=== PATIENT | female | born 1940 | race Caucasian/White ===

== ENCOUNTER 2019-10-18 13:50 | Outpatient (CLI) | payer MEDICARE, MEDICAID, SELFPAY | END 2019-10-18 13:51 | disposition home or self-care (01) | LOC: LAB 10-18 17:15 | PROVIDERS: Family Provider Family Medicine; PCP Family Medicine; Visit Provider Physician Assistant | DX: N39.0 Urinary tract infection, site not specified (principal) | CPT/HCPCS: 81003; 87086 ==

== ENCOUNTER 2019-10-27 11:00 | Inpatient (IN) | payer MEDICARE, OTHER, MEDICAID, SELFPAY ==
[2019-10-27] VITALS (12 sets, daily range): BP systolic 105–176; BP diastolic 67–94; PULSE 82–103; RESP 16–29; TEMP 36.8–37.4; O2SAT 91–96; BMI 28.1
--- NOTE | 2019-10-27 11:10 | ED_ITS ---
Entered by Carla Velázquez, acting as scribe for HPI - SOB/Dyspnea General: Chief Complaint: Shortness of Breath/Dyspnea Stated Complaint: SOB; HEADACHE Time Seen by Provider: 10/27/19 11:08 Source: patient Mode of arrival: EMS Limitations: no limitations History of Present Illness: HPI Narrative: 78 yo Female presents to ED from [facility] with complaint of shortness of breath. Pt states that she has been running a fever and throwing up. Pt states that she has only taken one pain pill today and she threw up the rest of her pills. Pt states that she normally wears oxygen at home. Pt states that she is on up to 3 liters at the halfway. Pt denies shortness of breath and states that she is here because of her fever and vomiting. Pt states she hasn't been around many sick people. Pt states that she has chronic back and shoulder pain. MD elicited complaint: shortness of breath Pertinent past history: COPD, congestive heart failure and pneumonia Known history of: COPD, congestive heart failure and recurrent pneumonia Associated symptoms: Reports cough, fever(s), nausea and vomiting Related Data: Home oxygen amount: 3 liters Review of Systems General: Reports: 10 or more systems reviewed and unremarkable except in HPI and below Const: Reports: fever Resp: Reports: productive cough (wet cough); Denies: shortness of breath GI: Reports: nausea and vomiting; Denies: diarrhea Musc: Reports: back pain (chronic) PFSH ED PFSH: Statuses (acute, chronic, etc) shown below reflect problem list status as previously entered and may not be historically accurate Medical History (Updated 10/27/19 @ 15:00 by Liam Barry MD, [facility] [place]) CHF (congestive heart failure) (Acute) Chronic back pain (Acute) COPD (chronic obstructive pulmonary disease) (Acute) GERD (gastroesophageal reflux disease) (Acute) Hepatitis (Acute) HTN (hypertension) (Acute) Lung disease (Acute) Osteoporosis (Acute) Pneumonia (Acute) Urinary tract infection, site not specified (Acute) Valvular heart disease (Acute) Surgical History (Updated 10/27/19 @ 11:32 by Carla Velázquez) History of back surgery (Acute) History of hip surgery (Acute) History of knee surgery (Acute) S/P cataract extraction (Acute) S/P tonsillectomy (Acute) Family History (Updated 10/25/19 @ 17:02 by Laura Graf RN) Family/Other Lung disease Cancer Hyperlipidemia Hypertension Social History (Updated 10/25/19 @ 17:03 by Laura Graf RN) Smoking and tobacco status: former smoker Alcohol intake: never Marital status: Current occupational status: retired Physical Exam Const: COMMON NORMALS: no apparent distress, average body habitus, oriented x3, no limitations, healthy appearing, alert and well nourished HENMT: COMMON NORMALS: normocephalic, head/scalp atraumatic, hearing grossly normal bilaterally, external ears normal, EAC's normal, TM's normal bilaterally, external nose normal, nasal mucous membranes and turbinates normal, moist oral mucous membranes, oropharynx normal, dentition normal and gingiva normal HEAD & SCALP: normocephalic and atraumatic NOSE: external nose normal and nasal mucous membranes and turbinates normal EXTERNAL EAR: Yes external ears normal EXTERNAL AUDITORY CANAL: EAC's normal TYMPANIC MEMBRANE: TM's normal bilaterally Eye: COMMON NORMALS: PERRL, EOMs intact bilaterally, conjunctivae normal, no scleral icterus, no papilledema, normal visual brewer by confrontation and fundi normal bilaterally CONJUNCTIVA: Yes conjunctivae normal PUPIL: Yes PERRL DIRECT OPHTHALMOSCOPY: Yes no papilledema and Yes fundi normal bilaterally Neck/C-Spine: COMMON NORMALS: full ROM, supple, no meningeal signs, no JVD and no carotid bruits Chest: COMMONS NORMALS: inspection of chest normal and palpation of chest normal Resp: COMMON NORMALS: normal respiratory effort, no retractions, no use of accessory muscles, clear to auscultation bilaterally and percussion normal AUSCULTATION: clear to auscultation bilaterally PERCUSSION: percussion normal Cardio: COMMON NORMALS: no JVD, regular rate, regular rhythm, S1 normal heart sound, S2 normal heart sound, no gallops, no clicks, no murmurs, no rub and peripheral pulses 2+ throughout RATE: regular rate RHYTHM: regular rhythm HEART SOUNDS: S1 normal and S2 normal PERIPHERAL PULSES: pulses 2+ throu ghout GI: COMMON NORMALS: normal to inspection, nondistended, normoactive bowel sounds, soft to palpation, non-tender, no hepatosplenomegaly, no masses and no bruits PALPATION: Yes soft and Yes no hepatosplenomegaly : COMMON NORMALS: Yes no CVA tenderness BLADDER/KIDNEY EXAM: Yes no CVA tenderness Back/Pelvis: COMMON NORMALS: no CVA tenderness Extremity: COMMON NORMALS: normal to inspection, full ROM, normal capillary refill, no joint enlargement, no clubbing, cyanosis or edema, no calf tenderness and no pedal edema Neuro: COMMON NORMALS: oriented x3 SENSORIUM/ORIENTATION: Yes alert MENINGEAL SIGNS: Yes no meningeal signs Skin: COMMON NORMALS: no rashes or lesions noted, no wounds, skin turgor normal, no jaundice, no petechiae and no mottling GENERAL SKIN EXAM: no rashes or lesions noted and turgor normal Course Vital Signs: Vital signs: Vital Signs Temperature 98.5 F 10/27/19 11:10 Pulse Rate 93 10/27/19 12:58 Respiratory Rate 22 H 10/27/19 12:58 Blood Pressure 105/82 10/27/19 13:44 Pulse Oximetry 93 10/27/19 13:44 MDM - SOB/Dyspnea MDM Narrative: Medical decision making narrative: 78-year-old halfway resident who presents to the emergency department with hypoxia, shortness of breath. Evaluation in the emergency department showed significantly elevated white cell count as well as atelectasis in the right base which I am concerned is a developing pneumonia. Because of all of the above I am going to manage has a case of pneumonia and she will be admitted to the hospital for inpatient antibiotics intravenously. The patient reluctantly agreed to this plan and all her questions were answered. Differential Diagnosis: Shortness of Breath Differential Diagnosis: Likely acute exacerbation of chronic obstructive airways disease, congestive heart failure and community acquired pneumonia Medical Records: Attestation: I reviewed the patient's medical records. Lab Data: Attestation: I reviewed the patient's lab results. Labs: Lab Results 10/27/19 10/27/19 10/27/19 Range/Units 10:54 10:54 10:54 WBC 25.2 H (4.0-10.0) 10^3/ uL RBC 4.98 (4.1-5.3) 10^6/u L Hgb 14.5 (11.5-15.3) g/dL Hct 45.2 (37.0-47.0) % MCV 90.8 (81-99) fL MCH 29.1 (28.0-34.0) pg MCHC 32.1 (30.0-36.0) g/dL RDW 14.0 (12.1-15.1) % Plt Count 406 H (130-400) 10^3/c mm MPV 8.4 (7.4-10.4) fL Neut % (Auto) 78.2 % Lymph % (Auto) 13.9 % [place] % (Auto) 6.3 % Eos % (Auto) 0.4 % Baso % (Auto) 0.4 % Neut # (Auto) 19.8 H (1.8-7.7) 10^3/u L Lymph # (Auto) 3.5 (0.8-4.8) 10^3/u L [place] # (Auto) 1.6 H (0.2-0.9) 10^3/u L Eos # (Auto) 0.1 (0.0-0.8) 10^3/u L Baso # (Auto) 0.1 (0.0-0.1) 10^3/u L Nucleated RBC % (a uto) 0 % Nucleated RBCs # 0.0 /100WBC Sodium 147 H (136-145) mmol/L Potassium 3.9 (3.5-5.1) mmol/L Chloride 102 (98-107) mmol/L Carbon Dioxide 26 (22-29) mmol/L Anion Gap 22.9 H (5-19) BUN 15 (8-23) mg/dL Creatinine 0.8 (0.5-0.9) mg/dL Glucose 174 H (74-106) mg/dL Lactic Acid (0.5-2.2) mmol/L Calcium 10.0 (8.8-10.2) mg/Dl Total Bilirubin 0.3 (0.15-1.2) mg/dL AST 14 (0-32) U/L ALT 9 (0-33) U/L Alkaline Phosphata se 100 (35-105) IU/L Troponin T Baselin e 30 H (0-10) ng/mL Troponin T 120 Min [place] (0-10) ng/mL Delta Troponin T (0-10) ABS# NT-Pro-B Natriuret Pep 524 H (0-450) pg/mL Total Protein 7.8 (6.6-8.7) g/dL Albumin 4.1 (3.5-5.2) g/dL Globulin 3.7 (1.3-4.6) g/dL Lipase 23 (13-60) U/L Urine Color (Yellow) Urine Appearance (CLEAR) Urine pH (5-7) Ur Specific Gravit y (1.005-1.030) Urine Protein (Negative) Urine Glucose (UA) (Normal) Urine Ketones (Negative) Urine Occult Blood (Negative) Urine Nitrate (Negative) Urine Bilirubin (NEGATIVE) Urine Urobilinogen (Negative) mg/dL Ur Leukocyte Lottie ase (Negative) Influenza Type A A g (Negative) POC Influenza B Ag (Negative) 10/27/19 10/27/19 10/27/19 Range/Units 11:28 11:32 12:10 WBC (4.0-10.0) 10^3/ uL RBC (4.1-5.3) 10^6/u L Hgb (11.5-15.3) g/dL Hct (37.0-47.0) % MCV (81-99) fL MCH (28.0-34.0) pg MCHC (30.0-36.0) g/dL RDW (12.1-15.1) % Plt Count (130-400) 10^3/c mm MPV (7.4-10.4) fL Neut % (Auto) % Lymph % (Auto) % [place] % (Auto) % Eos % (Auto) % Baso % (Auto) % Neut # (Auto) (1.8-7.7) 10^3/u L Lymph # (Auto) (0.8-4.8) 10^3/u L [place] # (Auto) (0.2-0.9) 10^3/u L Eos # (Auto) (0.0-0.8) 10^3/u L Baso # (Auto) (0.0-0.1) 10^3/u L Nucleated RBC % (a uto) % Nucleated RBCs # /100WBC Sodium (136-145) mmol/L Potassium (3.5-5.1) mmol/L Chloride (98-107) mmol/L Carbon Dioxide (22-29) mmol/L Anion Gap (5-19) BUN (8-23) mg/dL Creatinine (0.5-0.9) mg/dL Glucose (74-106) mg/dL Lactic Acid 1.3 (0.5-2.2) mmol/L Calcium (8.8-10.2) mg/Dl Total Bilirubin (0.15-1.2) mg/dL AST (0-32) U/L ALT (0-33) U/L Alkaline Phosphata se (35-105) IU/L Troponin T Baselin e (0-10) ng/mL Troponin T 120 Min [place] (0-10) ng/mL Delta Troponin T (0-10) ABS# NT-Pro-B Natriuret Pep (0-450) pg/mL Total Protein (6.6-8.7) g/dL Albumin (3.5-5.2) g/dL Globulin (1.3-4.6) g/dL Lipase (13-60) U/L Urine Color Dark yellow (Yellow) Urine Appearance Clear (CLEAR) Urine pH 7 (5-7) Ur Specific Gravit y 1.010 (1.005-1.030) Urine Protein Neg (Negative) Urine Glucose (UA) Norm (Normal) Urine Ketones 1+ H (Negative) Urine Occult Blood Neg (Negative) Urine Nitrate Negative (Negative) Urine Bilirubin Neg (NEGATIVE) Urine Urobilinogen Norm (Negative) mg/dL Ur Leukocyte Lottie ase Negative (Negative) Influenza Type A A g Negative (Negative) POC Influenza B Ag Negative (Negative) 10/27/19 Range/Units 12:55 WBC (4.0-10.0) 10^3/ uL RBC (4.1-5.3) 10^6/u L Hgb (11.5-15.3) g/dL Hct (37.0-47.0) % MCV (81-99) fL MCH (28.0-34.0) pg MCHC (30.0-36.0) g/dL RDW (12.1-15.1) % Plt Count (130-400) 10^3/c mm MPV (7.4-10.4) fL Neut % (Auto) % Lymph % (Auto) % [place] % (Auto) % Eos % (Auto) % Baso % (Auto) % Neut # (Auto) (1.8-7.7) 10^3/u L Lymph # (Auto) (0.8-4.8) 10^3/u L [place] # (Auto) (0.2-0.9) 10^3/u L Eos # (Auto) (0.0-0.8) 10^3/u L Baso # (Auto) (0.0-0.1) 10^3/u L Nucleated RBC % (a uto) % Nucleated RBCs # /100WBC Sodium (136-145) mmol/L Potassium (3.5-5.1) mmol/L Chloride (98-107) mmol/L Carbon Dioxide (22-29) mmol/L Anion Gap (5-19) BUN (8-23) mg/dL Creatinine (0.5-0.9) mg/dL Glucose (74-106) mg/dL Lactic Acid (0.5-2.2) mmol/L Calcium (8.8-10.2) mg/Dl Total Bilirubin (0.15-1.2) mg/dL AST (0-32) U/L ALT (0-33) U/L Alkaline Phosphata se (35-105) IU/L Troponin T Baselin e (0-10) ng/mL Troponin T 120 Min [place] 29.11 H (0-10) ng/mL Delta Troponin T -0.89 L (0-10) ABS# NT-Pro-B Natriuret Pep (0-450) pg/mL Total Protein (6.6-8.7) g/dL Albumin (3.5-5.2) g/dL Globulin (1.3-4.6) g/dL Lipase (13-60) U/L Urine Color (Yellow) Urine Appearance (CLEAR) Urine pH (5-7) Ur Specific Gravit y (1.005-1.030) Urine Protein (Negative) Urine Glucose (UA) (Normal) Urine Ketones (Negative) Urine Occult Blood (Negative) Urine Nitrate (Negative) Urine Bilirubin (NEGATIVE) Urine Urobilinogen (Negative) mg/dL Ur Leukocyte Lottie ase (Negative) Influenza Type A A g (Negative) POC Influenza B Ag (Negative) Imaging Data^: CXR: Radiologist's impression: [place] [id number] XRay Report Signed Patient: Bashir Nino #: [id number] : 9Acct#:[id number] Age/Sex: 78 / FADM Date: 10/27/19 Loc: ERRoom/Bed: Attending Dr: Ordering Provider/Ordering MD: Liam Barry MD, [facility] [place] Date of Service: 10/27/19 Procedure(s): XR chest 1V portable [id number] Accession Number(s): [id number] Report Number: [id number] PROCEDURE INFORMATION: Exam: XR Chest, 1 View Exam date and time: 10/27/2019 12:06 PM Age: 78 years old Clinical indication: Shortness of breath; Additional info: SOB TECHNIQUE: Imaging protocol: XR of the chest Views: Frontal portable upright view of the chest. COMPARISON: CR Chest 1 [place] [id number] 04/25/2019 10:02 PM FINDINGS: Lungs: Stable LEFT basilar pulmonary subsegmental atelectasis. The pulmonary vasculature is normal. Increased RIGHT basilar pulmonary subsegmental atelectasis. Pleural space: No pleural effusion. No pneumothorax. Heart/Mediastinum: Stable borderline cardiomegaly. Mediastinum: Stable. Vasculature: Moderate aortic arch atherosclerotic calcification without ectasia. Bones/joints: Large inferior articular marginal osteophyte of the LEFT humeral head. XR/XR chest 1V portable [id number] IMPRESSION: 1. Stable LEFT basilar pulmonary subsegmental atelectasis. 2. Increased RIGHT basilar pulmonary subsegmental atelectasis. Dictated By:Julien Rueda MD Signed By:Julien Ruedaigned Date/Time:10/27/19 1331 DD/ 1329 CT Chest: Radiologist's impression: [address] [place] [address] CT Scan Report Signed Patient: Bashir Nino #: [id number] : 9Acct#:[id number] Age/Sex: 78 / FADM Date: 10/27/19 Loc: ERRoom/Bed: Attending Dr: Ordering Provider/Ordering MD: Liam Barry MD, [facility] [place] Date of Service: 10/27/19 Procedure(s): CT chest w con* [id number] Accession Number(s): [id number] Report Number: [id number] PROCEDURE INFORMATION: Exam: CT Chest With Contrast Exam date and time: 10/27/2019 1:48 PM Age: 78 years old Clinical indication: Shortness of breath; Additional info: SOB, hypoxia TECHNIQUE: Imaging protocol: Computed tomography of the chest with intravenous contrast. Total DLP: 606.47 mGy-cm Radiation optimization: All CT scans at this facility use at least one of these dose optimization techniques: automated exposure control; mA and/or kV adjustment per patient size (includes targeted exams where dose is matched to clinical indication); or iterative reconstruction. Contrast material: Omnipaque 300; Contrast volume: 95 ml; Contrast route: IV; COMPARISON: CTA Chest-Pulmonary Emb [id number] 04/25/2019 11:50 PM FINDINGS: Thyroid: Inferior LEFT thyroid hypodensity measuring 14 mm. Lungs: Posterior RIGHT lower lobe pulmonary partial atelectasis. Bibasilar mild pulmonary subsegmental atelectasis is present. Pleural space: Unremarkable. No pneumothorax. No pleural effusion. Heart: LAD and RCA calcified coronary atherosclerosis. Mediastinum: Subcarinal granulomatous morris calcifications are present. Aorta: Moderate aortic arch, branch, and descending thoracic aortic atherosclerotic calcification without ectasia. Lymph nodes: RIGHT pulmonary hilar lymph node measuring 8.3 mm short axis. Kidneys and ureters: Bilateral renal cysts, largest on the LEFT measuring 14 mm. Bones/joints: Diffuse osteopenia. Degenerative disk disease is present at mid-thoracic spine disk levels. Chronic healed posterolateral LEFT fourth, fifth, eighth and ninth, and 10th, posterior 10th and 11th rib fractures. 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 L1-2 degenerative disc disease with moderate spondylosis. Soft tissues: Unremarkable. Other findings: Vasculature: Azygous arch valvular calcifications, normal variant. CT/CT chest w con* [id number] IMPRESSION: 1. No pulmonary embolism identified. 2. Bilateral renal cysts. 3. Posterior RIGHT lower lobe pulmonary partial atelectasis, increased. 4. Coronary atherosclerosis. 5. Recommend nonemergent thyroid sonography for further evaluation of a possible LEFT thyroid nodule. COMMENT: In patients aged 35 years and older with an incidental thyroid nodule equal to or greater than 1.[address], MRI or extrathyroidal US, further evaluation with dedicated thyroid US is recommended for patients with normal life expectancy and without comorbidities. For smaller nodules without suspicious features, no further evaluation or follow up is recommended. Radiation Dose CTDIVOL = (mGy): DLP = 606.47 (mGy-cm) Dictated By:Julien Rueda MD Signed By:Julien Ruedaigned Date/Time:10/27/191434 DD/ 32 EKG Data^: EKG 1: Attestation: I personally reviewed and interpreted this EKG as follows: EKG Interpretation Date: 10/27/19 EKG interpretation time: 11:45 Prior EKG tracings: not available for review Interpretation: Heart rate is 100.Sinus tachycardia. LAE. No ST changes Discharge Plan Discharge Patient Disposition: Admitted As Inpatient Clinical Impression: HCAP (healthcare-associated pneumonia), Hypoxia Condition: Stable Prescriptions: No Action Advair Diskus 250-50 mcg/dose Blister With Device 1 inh INHALATION BID RF: 0 acetaminophen 325 mg Tablet 650 mg PO BID RF: 0 acetaminophen 325 mg Tablet 650 mg PO Q4H PRN (Reason: Pain) RF: 0 tizanidine 2 mg Tablet 2 mg PO BID RF: 0 tizanidine 2 mg Tablet 2 mg PO DAILY PRN (Reason: Spasms) RF: 0 albuterol sulfate 2.5 mg /3 mL (0.083 %) Solution For Nebulization 2.5 mg INHALATION QID PRN (Reason: Shortness Of Breath) RF: 0 Miralax 17 gram Powder In Packet 17 g PO DAILY RF: 0 cetirizine 10 mg Tablet 10 mg PO DAILY RF: 0 Senna-S 8.6-50 mg Tablet 1 tab PO BID PRN (Reason: Constipation) RF: 0 potassium chloride 10 mEq Tablet Extended Release 10 meq PO DAILY RF: 0 lorazepam 0.5 mg Tablet 0.25 mg PO BID PRN (Reason: Anxiety) RF: 0 Milk of Magnesia 400 mg/5 mL Suspension 30 ml PO DAILY PRN (Reason: Constipation) RF: 0 simvastatin 20 mg Tablet 20 mg PO BEDTIME RF: 0 buspirone 30 mg Tablet 30 mg PO BID RF: 0 ferrous sulfate 325 mg (65 mg iron) Tablet 325 mg PO BID RF: 0 Zantac 150 mg Tablet 150 mg PO DAILY RF: 0 Enema 19-7 gram/118 mL Enema 118 ml OK DAILY PRN (Reason: Constipation) RF: 0 pramipexole 0.125 mg Tablet 0.125 mg PO BID RF: 0 gabapentin 300 mg Capsule 300 mg PO TID RF: 0 morphine 15 mg Tablet Extended Release 15 mg PO BID RF: 0 Lasix 20 mg Tablet See Rx Instructions .ROUTE .COMPLEX RF: 0 Lasix 20 mg Tablet 20 mg PO DAILY PRN (Reason: Edema) RF: 0 hydroxychloroquine 200 mg Tablet 200 mg PO BID RF: 0 Flonase Allergy Relief 50 mcg/actuation Rozet,Suspension 2 spray INTRANASAL BID RF: 0 metoprolol tartrate 25 mg Tablet 12.5 mg PO BID RF: 0 Macrobid 100 mg Capsule 100 mg PO BID RF: 0 Cymbalta 60 mg Capsule,Delayed Release(Dr/Ec) 60 mg PO DAILY RF: 0 Incruse Ellipta 62.5 mcg/actuation Blister With Device 1 inh INHALATION DAILY RF: 0 Referrals: Walter Sarmiento MD [Primary Care Provider] - Coding Level of Care Code ED Payroll Examiner for Chg Fwd Exam Problem Focused The documentation recorded by the Eber donahue Carmen, accurately reflects the service I personally performed and the decisions made by Asha figueroa Adegoke I, MD, [facility] [place] Oct 27, 2019 11:00
--- NOTE | 2019-10-27 11:10 | PC.NURSE ---
pt placed on monitor and given warm blanket. no further needs stated at this time, RN in room.
--- NOTE | 2019-10-27 11:21 | ECG_ITS ---
Measurements Intervals [place] Rate: 100 P: 40 FL: 181 QRS: 81 QRSD: 94 T: 67 QT: 349 QTc: 452 SINUS TACHYCARDIA POSSIBLE LEFT ATRIAL ENLARGEMENT [-0.1mV P WAVE IN V1/V2] ABNORMAL RHYTHM ECG INTERPRETATION BASED ON A DEFAULT AGE OF 40 YEARS Compared to ECG 04/26/2019 11:17:37 Sinus rhythm no longer present Electronically Signed On 10-27-2019 19:19:47 [employer]MING [employer] OPERATOR [employer] by Dennis He M.D. [email or web address]
[2019-10-27 11:28] LABS: Basophils # 0.1 10^3/uL (0.0-0.1); Basophils % 0.4 %; Eosinophils # 0.1 10^3/uL (0.0-0.8); Eosinophils % 0.4 %; Hematocrit 45.2 % (37.0-47.0); Hemoglobin 14.5 g/dL (11.5-15.3); Lymphocytes # 3.5 10^3/uL (0.8-4.8); Lymphocytes % 13.9 %; Mean Corpuscular HGB Conc 32.1 g/dL (30.0-36.0); Mean Corpuscular Hemoglobin 29.1 pg (28.0-34.0); Mean Corpuscular Volume 90.8 fL (81-99); Mean Platelet Volume 8.4 fL (7.4-10.4); Monocytes # 1.6 10^3/uL (0.2-0.9); Monocytes % 6.3 %; Neutrophils # 19.8 10^3/uL (1.8-7.7); Neutrophils % 78.2 %; Nucleated Red Blood Cells % 0 %; Platelet Count 406 10^3/cmm (130-400); Red Blood Count 4.98 10^6/uL (4.1-5.3); White Blood Count 25.2 10^3/uL (4.0-10.0)
[2019-10-27 11:47] LABS: Troponin(5th) Baseline 30 ng/mL (0-10)
[2019-10-27 11:52] LABS: Alanine Aminotransferase 9 U/L (0-33); Albumin Level 4.1 g/dL (3.5-5.2); Alkaline Phosphatase 100 IU/L (35-105); Anion Gap 22.9 (5-19); Aspartate Amino Transferase 14 U/L (0-32); Blood Urea Nitrogen 15 mg/dL (8-23); Carbon Dioxide 26 mmol/L (22-29); Chloride 102 mmol/L (98-107); Globulin 3.7 g/dL (1.3-4.6); Glucose 174 mg/dL (74-106); Lipase 23 U/L (13-60); NT Pro B Type Natriuretic Pept 524 pg/mL (0-450); Potassium 3.9 mmol/L (3.5-5.1); Sodium 147 mmol/L (136-145); Total Bilirubin 0.3 mg/dL (0.15-1.2); Total Protein 7.8 g/dL (6.6-8.7)
--- NOTE | 2019-10-27 11:56 | XRR_ITS ---
PROCEDURE INFORMATION: Exam: XR Chest, 1 View Exam date and time: 10/27/2019 12:06 PM Age: 78 years old Clinical indication: Shortness of breath; Additional info: SOB TECHNIQUE: Imaging protocol: XR of the chest Views: Frontal portable upright view of the chest. COMPARISON: CR Chest 1 [place] [id number] 04/25/2019 10:02 PM FINDINGS: Lungs: Stable LEFT basilar pulmonary subsegmental atelectasis. The pulmonary vasculature is normal. Increased RIGHT basilar pulmonary subsegmental atelectasis. Pleural space: No pleural effusion. No pneumothorax. Heart/Mediastinum: Stable borderline cardiomegaly. Mediastinum: Stable. Vasculature: Moderate aortic arch atherosclerotic calcification without ectasia. Bones/joints: Large inferior articular marginal osteophyte of the LEFT humeral head. XR/XR chest 1V portable [id number] IMPRESSION: 1. Stable LEFT basilar pulmonary subsegmental atelectasis. 2. Increased RIGHT basilar pulmonary subsegmental atelectasis.
[2019-10-27 11:57] LABS: Influenza A by IFA Negative (Negative); Influenza B by IFA Negative (Negative)
[2019-10-27 12:36] LABS: Lactic Acid 1.3 mmol/L (0.5-2.2)
[2019-10-27 12:52] LABS: Add Urine Microscopic? NO
--- NOTE | 2019-10-27 12:58 | PC.NURSE ---
back is now hurting and is a 9
[2019-10-27 13:05] LABS: Urine Appearance Clear (CLEAR); Urine Color Dark Yellow (Yellow); pH Urine 7 (5-7)
[2019-10-27 13:06] LABS: Bilirubin Urine Neg (NEGATIVE); Blood Urine Neg (Negative); Glucose Urine UA Norm (Normal); Ketones Urine 1+ (Negative); Leukocyte Esterase Urine Negative (Negative); Nitrate Urine Negative (Negative); Protein Urine Neg (Negative); Urobilinogen Urine Norm (Negative)
[2019-10-27 13:27] LABS: Troponin 5 2HR 29.11 ng/mL (0-10)
--- NOTE | 2019-10-27 13:35 | CTR_ITS ---
PROCEDURE INFORMATION: Exam: CT Chest With Contrast Exam date and time: 10/27/2019 1:48 PM Age: 78 years old Clinical indication: Shortness of breath; Additional info: SOB, hypoxia TECHNIQUE: Imaging protocol: Computed tomography of the chest with intravenous contrast. Total DLP: 606.47 mGy-cm Radiation optimization: All CT scans at this facility use at least one of these dose optimization techniques: automated exposure control; mA and/or kV adjustment per patient size (includes targeted exams where dose is matched to clinical indication); or iterative reconstruction. Contrast material: Omnipaque 300; Contrast volume: 95 ml; Contrast route: IV; COMPARISON: CTA Chest[place]ulmonary [place] [id number] 04/25/2019 11:50 PM FINDINGS: Thyroid: Inferior LEFT thyroid hypodensity measuring 14 mm. Lungs: Posterior RIGHT lower lobe pulmonary partial atelectasis. Bibasilar mild pulmonary subsegmental atelectasis is present. Pleural space: Unremarkable. No pneumothorax. No pleural effusion. Heart: LAD and RCA calcified coronary atherosclerosis. Mediastinum: Subcarinal granulomatous morris calcifications are present. Aorta: Moderate aortic arch, branch, and descending thoracic aortic atherosclerotic calcification without ectasia. Lymph nodes: RIGHT pulmonary hilar lymph node measuring 8.3 mm short axis. Kidneys and ureters: Bilateral renal cysts, largest on the LEFT measuring 14 mm. Bones/joints: Diffuse osteopenia. Degenerative disk disease is present at mid-thoracic spine disk levels. Chronic healed posterolateral LEFT fourth, fifth, eighth and ninth, and 10th, posterior 10th and 11th rib fractures. 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 L1-2 degenerative disc disease with moderate spondylosis. Soft tissues: Unremarkable. Other findings: Vasculature: Azygous arch valvular calcifications, normal variant. CT/CT chest w con* [id number] IMPRESSION: 1. No pulmonary embolism identified. 2. Bilateral renal cysts. 3. Posterior RIGHT lower lobe pulmonary partial atelectasis, increased. 4. Coronary atherosclerosis. 5. Recommend nonemergent thyroid sonography for further evaluation of a possible LEFT thyroid nodule. COMMENT: In patients aged 35 years and older with an incidental thyroid nodule equal to or greater than 1.[address], MRI or extrathyroidal US, further evaluation with dedicated thyroid US is recommended for patients with normal life expectancy and without comorbidities. For smaller nodules without suspicious features, no further evaluation or follow up is recommended. Radiation Dose CTDIVOL = (mGy): DLP = 606.47 (mGy-cm)
[2019-10-27 13:44] LABS: Troponin 5 2HR Delta -0.89 ABS# (0-10)
[2019-10-27] MEDS: HYDROcodone-acetaminophen 5-325 mg Tablet 1 TAB PO (13:52)
[2019-10-27] MEDS: piperacillin-tazobactam 3.375 GM in sodium chloride 0.9% (plus) 50 ML IV ×2 (13:53→21:01)
[2019-10-27] MEDS: iohexol 300 mg/mL 100 mL Btl IV (14:10)
--- NOTE | 2019-10-27 14:26 | PC.NURSE ---
pt was given a coke to drink at this time per the ED physician.
[2019-10-27] MEDS: morphine 4 mg/mL SDV 1 mL IVP (15:00)
[2019-10-27] MEDS: vancomycin 1,000 MG in sodium chloride 0.9% 250 ML 250 MG IV (15:00)
--- NOTE | 2019-10-27 16:11 | PM.HP ---
Providers/Chief Complaint Admitting Physician: John Wilks MD Primary Care Provider: Walter Sarmiento MD Chief Complaint: HCAP History of Present Illness Rimma Nino is a 78 year old female with past medical history of COPD, emphysema on 2 to 3 L of nasal cannula oxygen supplementation, diastolic heart failure, sclerosed aortic valve, hypertension, 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 coli and Enterobacter VRE presents from senior care complaining of cough with expectoration getting worse for last 1 week acutely worse for last 2 days. Patient states sputum production is more than scanty. She always has some sputum production but has increased recently. Mostly whitish in color not foul-smelling and not bloodstained. Cough associated with shortness of breath which increases on mild exertion. Shortness of breath has been increasing gradually. Her requirement of oxygen has also gone up to 3 L recently and asked 1 week. Also complains of subjective feels a fever though has not checked. Denies of having any dysuria, abdominal pain, diarrhea, headache, dizziness. Symptoms are also assisted with flulike symptoms with runny nose and postnasal drip. Denies of having any recent travels. States multiple people at senior care are having cough so not really sure if she had a sick contact or not. Denies of having any palpitations, heartburn, lightheadedness, dizziness, orthopnea or PND. She complains of having generalized myalgias, muscle spasms recently. Review of Systems Const: Reports: fever; Denies: chills, body aches, change in appetite, malaise, night sweats, diaphoresis, change in sleep pattern, daytime sleepiness or snoring Eyes: Denies: change in vision, blurry vision, photophobia, eye discomfort or eye discharge ENMT: Reports: nasal congestion and post nasal drip; Denies: throat pain, enlarged tonsils, hoarseness, mouth pain, oral sores/lesions, dry mouth or tinnitus Card: Denies: chest pain, palpitations, irregular heart rhythm, edema, swelling of feet/ankles, lightheadedness, syncope, pre-syncope, shortness of breath on exertion, shortness of breath when lying down, leg pain with exertion or bluish discoloration of hands/feet Resp: Reports: shortness of breath, productive cough and wheezing; Denies: non-productive cough, stridor, pain on inspiration, change in phlegm color, coughing up blood or chest congestion GI: Denies: abdominal pain, nausea, vomiting, vomiting blood, coffee grounds in vomit, difficulty swallowing, heartburn/indigestion, diarrhea, constipation, bloating, cramping, change in bowel habits, painful bowel movements, blood in stool or black tarry stool : Denies: flank pain, painful urination, urinary frequency, urinary urgency, urinary hesitancy, nighttime urination or blood in urine Musc: Denies: neck pain, back pain, extremity pain, joint pain, joint swelling, redness, joint stiffness or limited range of motion Neuro: Denies: headache, numbness in extremities, weakness in extremities, changes in sensation, lack of coordination, difficulty walking, frequent falls, dizziness, vertigo, confusion, slurred speech, difficulty communicating thoughts or seizure-like activity Psych: Denies: anxiety, depression, mood swings, panic attacks, hopelessness or irritability Endo: Denies: excessive urination, excessive thirst, tired all the time, cold intolerance, excessive sweating, flushing or heat intolerance Kip/Lymph: Denies: easy bruising or easy bleeding All/Imm: Denies: tongue swelling, facial swelling or acute wheezing Medications/Allergies Home Medications Medication Instructions Recorded Confirmed Last Taken Type acetaminophen 650 mg PO BID 10/27/19 10/27/19 10/27/19 History acetaminophen 650 mg PO Q4H PRN 10/27/19 10/27/19 Unknown History albuterol sulfate 2.5 mg INHALATION QID PRN 10/27/19 10/27/19 Unknown History buspirone 30 mg PO BID 10/27/19 10/27/19 10/27/19 History cetirizine 10 mg PO DAILY 10/27/19 10/27/19 10/27/19 History duloxetine [Cymbalta] 60 mg PO DAILY 10/27/19 10/27/19 10/27/19 History ferrous sulfate 325 mg PO BID 10/27/19 10/27/19 10/27/19 History fluticasone propion-salmeterol 1 inh INHALATION BID 10/27/19 10/27/19 10/27/19 History [Advair Diskus] fluticasone propionate [Flonase 2 spray INTRANASAL BID 10/27/19 10/27/19 10/27/19 History Allergy Relief] furosemide [Lasix] 20 mg PO DAILY PRN 10/27/19 10/27/19 Unknown History furosemide [Lasix] See Rx Instructions .ROUTE .COMPLEX 10/27/19 10/27/19 10/27/19 History gabapentin 300 mg PO TID 10/27/19 10/27/19 10/27/19 History hydroxychloroquine 200 mg PO BID 10/27/19 10/27/19 10/27/19 History lorazepam 0.25 mg PO BID PRN 10/27/19 10/27/19 Unknown History magnesium hydroxide [Milk of 30 ml PO DAILY PRN 10/27/19 10/27/19 Unknown History Magnesia] metoprolol tartrate 12.5 mg PO BID 10/27/19 10/27/19 10/27/19 History morphine 15 mg PO BID 10/27/19 10/27/19 10/27/19 History nitrofurantoin monohyd/m-cryst 100 mg PO BID 10/27/19 10/27/19 10/27/19 History [Macrobid] polyethylene glycol 3350 [Miralax] 17 g PO DAILY 10/27/19 10/27/19 10/27/19 History potassium chloride 10 meq PO DAILY 10/27/19 10/27/19 10/27/19 History pramipexole 0.125 mg PO BID 10/27/19 10/27/19 10/27/19 History ranitidine HCl [Zantac] 150 mg PO DAILY 10/27/19 10/27/19 10/27/19 History sennosides-docusate sodium 1 tab PO BID PRN 10/27/19 10/27/19 Unknown History [Senna-S] simvastatin 20 mg PO BEDTIME 10/27/19 10/27/19 10/26/19 History sodium phosphates [Enema] 118 ml MD DAILY PRN 10/27/19 10/27/19 Unknown History tizanidine 2 mg PO BID 10/27/19 10/27/19 10/27/19 History tizanidine 2 mg PO DAILY PRN 10/27/19 10/27/19 Unknown History umeclidinium [Incruse Ellipta] 1 inh INHALATION DAILY 10/27/19 10/27/19 10/27/19 History Allergies Allergy/AdvReac Type Severity Reaction Status Date / Time No Known Allergies Allergy Unverified 10/27/19 11:14 PFSH Acute PFSH: Statuses (acute, chronic, etc) shown below reflect problem list status as previously entered and may not be historically accurate Medical History (Updated 10/27/19 @ 17:18 by John Wilks MD) Acute and chronic respiratory failure with hypoxia (Acute) Chronic back pain (Acute) COPD (chronic obstructive pulmonary disease) (Acute) Diastolic heart failure (Acute) GERD (gastroesophageal reflux disease) (Acute) Hepatitis (Acute) HTN (hypertension) (Acute) Lung disease (Acute) Nonrheumatic aortic valve sclerosis (Acute) Osteoporosis (Acute) Pneumonia (Acute) Urinary tract infection, site not specified (Acute) Surgical History (Updated 10/27/19 @ 11:32 by Carla Velázquez) History of back surgery (Acute) History of hip surgery (Acute) History of knee surgery (Acute) S/P cataract extraction (Acute) S/P tonsillectomy (Acute) Family History (Updated 10/25/19 @ 17:02 by Laura Graf RN) Family/Other Lung disease Cancer Hyperlipidemia Hypertension Social History (Updated 10/27/19 @ 17:16 by John Wilks MD) Smoking and tobacco status: former smoker Alcohol intake: never Housing: [place] Marital status: Current occupational status: retired Vitals/I&O/Wt Last Vital Signs Temp 98.5 F 10/27/19 11:10 Pulse 92 10/27/19 15:37 Resp 20 H 10/27/19 15:37 BP 138/74 10/27/19 15:37 Pulse Ox 93 10/27/19 15:37 Weight last 48 hrs Weight 67.585 kg Physical Exam Narrative: EXAM NARRATIVE: General: No acute distress, AO x3, no pallor no icterus, dry skin HEENT: PERRLA, pupils bilaterally equal and reactive Chest: Bilateral decreased air entry, bronchial breath sounds, rhonchi and coarse crackles present in right lower zone, posterior more than anterior. CVS: S1-S2 regular, ejection systolic murmur present in aortic area, 2/6 faint, no tachycardia, no gallops, no rubs Abdomen: Soft, nontender, no organomegaly, bowel sounds present Neuro: No focal deficits, no facial deformity, AO x3, power 5/5 in all limbs, intentional tremors present Data : 10/27/19 10:54 10/27/19 10:54 Micro: Microbiology 10/27/19 12:13 Blood Culture - Preliminary Blood SPECIMEN COLLECTED 10/27/19 12:10 Blood Culture - Preliminary Blood SPECIMEN COLLECTED Echo: Radiologist's impression: 01/2019 FINDINGS Left Ventricle Small left ventricular cavity size. Normal left ventricular wall thickness. Hyperdynamic left ventricular systolic function. Left ventricular ejection fraction is estimated at 80 %. No regional wall motion abnormalities. Grade I diastolic dysfunction (abnormal relaxation filling pattern), mildly elevated filling pressures. Right Ventricle Normal right ventricular size and systolic function. Right ventricular systolic pressure 32 mmHg. Right Atrium Normal right atrial size. Right atrial pressure estimated at 3 mmHg. Left Atrium Normal left atrial size. Mitral Valve Mild mitral annular calcification. Trace to mild mitral valve regurgitation. Aortic Valve Aortic valve not well visualized. Probably tricuspid sclerotic aortic valve. No aortic stenosis. Flow acceleration through aortic valve with systolic anterior motion of chordae. LVOT peak velocity of 4.7 m/s and peak gradient 88 mmHg. Trace- mild aortic valve regurgitation. Tricuspid Valve Structurally normal tricuspid valve. No tricuspid valve stenosis. Trace tricuspid valve regurgitation. Pulmonic Valve Pulmonic valve not well visualized. No pulmonary valve stenosis. No significant pulmonary valve regurgitation. Pericardium No pericardial effusion. Aorta Aorta not well visualized. CONCLUSIONS 1. This is a technically difficult study. 2. Small left ventricular cavity size. Hyperdynamic left ventricular systolic function. Left ventricular ejection fraction is estimated at 80 %. No regional wall motion abnormalities. Grade I diastolic dysfunction (abnormal relaxation filling pattern), mildly elevated filling pressures. 3. Normal right ventricular size and systolic function. 4. Probably tricuspid sclerotic aortic valve. No aortic stenosis. Flow acceleration through aortic valve with systolic anterior motion of chordae. LVOT peak velocity of 4.7 m/s and peak gradient 88 mmHg. Trace- mild aortic valve regurgitation. 5. Upper normal pulmonary artery pressure estimated at 32 mmHg. 6. Right atrial pressure estimated at 3 mmHg. 7. There are no prior studies to compare. Gail Padilla MD (Electronically Signed) Final Date: 04 February 2019 12:45 S CTA Chest: Radiologist's impression: CT Scan Report Signed Patient: Bashir Nino #: [id number] : 12/13/1941Acct#:[id number] Age/Sex: 78 / FADM Date: 10/27/19 Loc: ERRoom/Bed: Attending Dr: Ordering Provider/Ordering MD: Liam Barry MD, GIRISH Date of Service: 10/27/19 Procedure(s): CT chest w con* [id number] Accession Number(s): [id number] Report Number: [id number] PROCEDURE INFORMATION: Exam: CT Chest With Contrast Exam date and time: 10/27/2019 1:48 PM Age: 78 years old Clinical indication: Shortness of breath; Additional info: SOB, hypoxia TECHNIQUE: Imaging protocol: Computed tomography of the chest with intravenous contrast. Total DLP: 606.47 mGy-cm Radiation optimization: All CT scans at this facility use at least one of these dose optimization techniques: automated exposure control; mA and/or kV adjustment per patient size (includes targeted exams where dose is matched to clinical indication); or iterative reconstruction. Contrast material: Omnipaque 300; Contrast volume: 95 ml; Contrast route: IV; COMPARISON: CTA Chest-Pulmonary Emb [id number] 04/25/2019 11:50 PM FINDINGS: Thyroid: Inferior LEFT thyroid hypodensity measuring 14 mm. Lungs: Posterior RIGHT lower lobe pulmonary partial atelectasis. Bibasilar mild pulmonary subsegmental atelectasis is present. Pleural space: Unremarkable. No pneumothorax. No pleural effusion. Heart: LAD and RCA calcified coronary atherosclerosis. Mediastinum: Subcarinal granulomatous morris calcifications are present. Aorta: Moderate aortic arch, branch, and descending thoracic aortic atherosclerotic calcification without ectasia. Lymph nodes: RIGHT pulmonary hilar lymph node measuring 8.3 mm short axis. Kidneys and ureters: Bilateral renal cysts, largest on the LEFT measuring 14 mm. Bones/joints: Diffuse osteopenia. Degenerative disk disease is present at mid-thoracic spine disk levels. Chronic healed posterolateral LEFT fourth, fifth, eighth and ninth, and 10th, posterior 10th and 11th rib fractures. 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 L1-2 degenerative disc disease with moderate spondylosis. Soft tissues: Unremarkable. Other findings: Vasculature: Azygous arch valvular calcifications, normal variant. CT/CT chest w con* [id number] IMPRESSION: 1. No pulmonary embolism identified. 2. Bilateral renal cysts. 3. Posterior RIGHT lower lobe pulmonary partial atelectasis, increased. 4. Coronary atherosclerosis. 5. Recommend nonemergent thyroid sonography for further evaluation of a possible LEFT thyroid nodule. A&P Assessment and plan (1) Acute and chronic respiratory failure with hypoxia: Status: Acute Code(s): J96.21 - Acute and chronic respiratory failure with hypoxia (2) HCAP (healthcare-associated pneumonia): Status: Acute Code(s): J18.9 - Pneumonia, unspecified organism (3) COPD (chronic obstructive pulmonary disease): Status: Acute Code(s): J44.9 - Chronic obstructive pulmonary disease, unspecified (4) Diastolic heart failure: Status: Acute Code(s): I50.30 - Unspecified diastolic (congestive) heart failure (5) HTN (hypertension): Status: Acute Code(s): I10 - Essential (primary) hypertension Additional A&P Information Additional A&P Information: Acute hypoxic respiratory failure most likely due to H CAP contributing to COPD exacerbation: Though CT has been read as negative for pneumonia but it is possible patient has fine developing infiltrates in the right middle and lower zone and patient is hypoxic, white count elevated, low-grade fever. Lactate normal. Check procalcitonin, sputum culture and Gram stain, MRSA swab, blood cultures already sent from the ER so we will follow-up. Flu swab negative. UA is not suggestive of any UTI. Patient denies of having any dysuria. Patient in past has history of resistant bacteria's. Do not see any documented MRSA swab. Does have history of VRE in urine and Pseudomonas in sputum. Patient already started on Zosyn in the ER. Will add on vancomycin. Both medications to be renally dosed. DuoNeb's [id number], budesonide twice daily with albuterol as needed. Oxygen supplementation keeping saturation over 88%. No wheeze on examination so will avoid systemic steroids for now. History of diastolic heart failure: On evaluation at present patient is dehydrated. Sodium levels also elevated., Thrombocytosis. We will start patient on half NS at 100 cc/h. Will monitor for fluid overload. Hypertension: No medication at home dose earlier than Lopressor 12.5 twice daily. Blood pressure at present over 160. We will continue to monitor if continues to remain high we will add low-dose amlodipine. We will continue other home medications like BuSpar, Cymbalta, oral iron, gabapentin. Patient is DNR/DNI as per her daughter and her old records. Cardiac diet. Lovenox for DVT prophylaxis. Attestations Medical Necessity Statement*: Admission for more than 2 midnights for management of acute hypoxic respiratory failure Time Spent in Patient Care: Greater than 35 minutes Coding Level of Care Code Acute Customer Service Sales Associate for [facility] Diagnoses Acute and chronic respiratory failure with hypoxia J96.21 HCAP (healthcare-associated pneumonia) J18.9 COPD (chronic obstructive pulmonary disease) J44.9 Diastolic heart failure I50.30 HTN (hypertension) I10
[2019-10-27 17:15] LABS: Iron 18 ug/dL (37-145); Percent Saturation 6.5 % (20-50); Total Iron Binding Capacity 276 mg/dL; Unsaturated Iron Binding 258 ug/dL (112-347)
[2019-10-27 17:16] LABS: D Dimer 0.89 ug/mIFEU (0-0.59)
[2019-10-27 17:25] LABS: Procalcitonin 0.07 ng/mL (0-0.8)
[2019-10-27] MEDS: metoprolol tartrate 25 mg Tablet 12.5 MG PO (17:27)
[2019-10-27] MEDS: ferrous sulfate EC 325 mg Tablet PO (17:27)
[2019-10-27] MEDS: enoxaparin 40 mg/0.4 mL Syringe SUBCUT (17:28)
[2019-10-27 18:02] LABS: Troponin 5 6HR 26.13 ng/L (0-10)
[2019-10-27 18:29] LABS: Troponin 5 6HR Delta -3.87 ng/L (0-12)
[2019-10-27] MEDS: fluticasone nasal spray 16gm Btl 2 SPRAY INTRANASAL (19:05)
[2019-10-27] MEDS: famotidine 20 mg/2 mL INJ IVP (19:05)
[2019-10-27] MEDS: budesonide 0.5 mg/2 mL Neb INHALATION (20:21)
[2019-10-27] MEDS: ipratropium-albuterol 3 mL Neb INHALATION (20:21)
[2019-10-27] MEDS: gabapentin 300 mg Capsule PO (21:02)
[2019-10-27] MEDS: atorvastatin 40 mg Tablet 20 MG PO (21:02)
[2019-10-28] VITALS (12 sets, daily range): BP systolic 136–173; BP diastolic 51–79; PULSE 67–92; RESP 17–22; TEMP 36.6–37.5; O2SAT 92–96
[2019-10-28] MEDS: ipratropium-albuterol 3 mL Neb INHALATION ×4 (02:12→21:42)
[2019-10-28] MEDS: piperacillin-tazobactam 3.375 GM in sodium chloride 0.9% (plus) 50 ML IV ×3 (05:27→22:41)
[2019-10-28] MEDS: famotidine 20 mg/2 mL INJ IVP ×2 (05:27→18:28)
[2019-10-28 06:59] LABS: Basophils # 0.1 10^3/uL (0.0-0.1); Basophils % 0.5 %; Eosinophils # 0.1 10^3/uL (0.0-0.8); Eosinophils % 0.9 %; Hematocrit 39.1 % (37.0-47.0); Hemoglobin 12.3 g/dL (11.5-15.3); Lymphocytes % 13.5 %; Mean Corpuscular HGB Conc 31.5 g/dL (30.0-36.0); Mean Corpuscular Hemoglobin 28.7 pg (28.0-34.0); Mean Corpuscular Volume 91.4 fL (81-99); Mean Platelet Volume 8.2 fL (7.4-10.4); Monocytes # 1.1 10^3/uL (0.2-0.9); Monocytes % 7.2 %; Neutrophils # 11.3 10^3/uL (1.8-7.7); Neutrophils % 76.7 %; Nucleated Red Blood Cells % 0 %; Platelet Count 363 10^3/cmm (130-400); Red Blood Count 4.28 10^6/uL (4.1-5.3); White Blood Count 14.7 10^3/uL (4.0-10.0)
[2019-10-28 07:19] LABS: Anion Gap 14.6 (5-19); Blood Urea Nitrogen 10 mg/dL (8-23); Calcium 9.3 mg/Dl (8.8-10.2); Carbon Dioxide 28 mmol/L (22-29); Chloride 97 mmol/L (98-107); Glucose 126 mg/dL (74-106); Potassium 3.6 mmol/L (3.5-5.1); Sodium 136 mmol/L (136-145)
[2019-10-28] MEDS: morphine 4 mg/mL SDV 1 mL 1 MG IVP ×3 (07:30→22:42)
[2019-10-28] MEDS: budesonide 0.5 mg/2 mL Neb INHALATION (07:52)
[2019-10-28] MEDS: duloxetine 60 mg Capsule PO (08:41)
[2019-10-28] MEDS: gabapentin 300 mg Capsule PO ×3 (08:41→22:43)
[2019-10-28] MEDS: ferrous sulfate EC 325 mg Tablet PO ×2 (08:41→18:28)
[2019-10-28] MEDS: metoprolol tartrate 25 mg Tablet 12.5 MG PO ×2 (08:42→18:28)
[2019-10-28] MEDS: fluticasone nasal spray 16gm Btl 2 SPRAY INTRANASAL ×2 (09:34→18:30)
[2019-10-28] MEDS: vancomycin 1,000 MG in sodium chloride 0.9% 250 ML 250 MG IV (09:36)
--- NOTE | 2019-10-28 14:48 | PC.CHAP ---
Pastoral Care Encounter/Spiritual Assessment Type of Contact [] Declined transit man visit [] Patient/Family/Request visit [] Outpatient visit [] Follow-up visit [] Physician referral [] Code/Alert [x] Routine visit [] Staff referral [] Actively dying [] Patient sleeping [x] Family support [] [] Out of room [] Palliative care [] [x] Receiving care in room [] Pre-surgical visit [] Trauma [] Long length of stay [] ICU visit [] Other: Relational/Emotional Strength [x] Patient feels connected with others/family/visitors/staff [] Distress [] Loneliness/isolation [] Abandonment Spirituality of Patient [x] Person of Ayanna [] Attends Evangelical of their Ayanna [x] Believes in Prayer [] Reads Bible or Orthodoxy materials [] There are Spiritual issues to be addressed Farm Worker Interventions [x] Prayer [x] Active listening [x] Non-anxious presence [x] Spiritual/emotional support [] Crisis/trauma care [] Spiritual counseling [] Bereavement support [] Provided bereavement packet [] Provided Bible/devotional materials [] Provided toy/stuffed animal, coloring book to patient or family member [x] Completed spiritual assessment [] Provided Communion [] Anointing/[place] [] Salvation [] Other: Impact on Illness or Injury [] Angry [] Fearful [] Anxious [] Often cries [] Exhaustion [] Unable to work [] Unable to attend sikhism [] Unable to walk/stand [] Unable to read [] Unable to drive [] Unable to eat/drink [] Unable to sleep [] Unable to be with family [x] Other: Patient lives in residential Summary Has excellent attitude and is going with the flow of her condition. Attends services at residential and other activities. 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 Patient had a visitor. Time spent with patient 15 minutes
[2019-10-28] MEDS: enoxaparin 40 mg/0.4 mL Syringe SUBCUT (18:27)
--- NOTE | 2019-10-28 19:45 | PM.PN ---
Subjective Subjective: Interval history: NO acute events. Stating feeling a lot better now. States cough has reduced and SOB has improved. O2 supplementation is at baseline. Patient and daughter is concerned about tremors. Medications: Reviewed: Yes Vitals/I&O/Wt Last Vital Signs Temp 98.3 F 10/28/19 15:03 Pulse 84 10/28/19 15:03 Resp 20 H 10/28/19 15:03 BP 138/64 10/28/19 15:03 Pulse Ox 96 10/28/19 15:03 10/28/19 10/28/19 10/28/19 06:59 14:59 22:59 Intake Total 1050 / 1050 290 / 290 360 / 650 Balance 1050 / 870 290 / 290 360 / 650 Weight last 48 hrs Weight 69.144 kg Weight 67.585 kg Physical Exam Narrative: EXAM NARRATIVE: General: No acute distress, AO x3, no pallor no icterus, dry skin HEENT: PERRLA, pupils bilaterally equal and reactive Chest: Air entry better, bronchial breath sounds, rhonchi and coarse crackles present in right lower zone, posterior more than anterior. CVS: S1-S2 regular, ejection systolic murmur present in aortic area, 2/6 faint, no tachycardia, no gallops, no rubs Abdomen: Soft, nontender, no organomegaly, bowel sounds present Neuro: No focal deficits, no facial deformity, AO x3, power 5/5 in all limbs, intentional tremors present Data Micro: Micro: Microbiology 10/28/19 11:10 Gram Stain - Final Sputum - Expector ated Sputum 10/27/19 12:13 Blood Culture - Pr eliminary Blood NEGATIVE TO ERIBERTO E 10/27/19 12:10 Blood Culture - Pr eliminary Blood NEGATIVE TO ERIBERTO E A&P Assessment and plan (1) Acute and chronic respiratory failure with hypoxia: Status: Acute Code(s): J96.21 - Acute and chronic respiratory failure with hypoxia (2) HCAP (healthcare-associated pneumonia): Status: Acute Code(s): J18.9 - Pneumonia, unspecified organism (3) COPD (chronic obstructive pulmonary disease): Status: Acute Code(s): J44.9 - Chronic obstructive pulmonary disease, unspecified (4) Diastolic heart failure: Status: Acute Code(s): I50.30 - Unspecified diastolic (congestive) heart failure (5) HTN (hypertension): Status: Acute Code(s): I10 - Essential (primary) hypertension Additional A&P Information Acute hypoxic respiratory failure most likely due to HCAP contributing to COPD exacerbation: Symptomatically improving. WBC improving. Though CT has been read as negative for pneumonia but it is possible patient has fine developing infiltrates in the right middle and lower zone and patient is hypoxic, white count elevated, low-grade fever. Lactate normal. Procal, flu swab negative. MRSA awaited. Sputum result prelim. UA is not suggestive of any UTI. Patient denies of having any dysuria. Patient in past has history of resistant bacteria's. Do not see any documented MRSA swab. Does have history of VRE in urine and Pseudomonas in sputum. C/w Vanc and zosyn for now and de-escalate as per culture. DuoNeb's [id number], budesonide twice daily with albuterol as needed. Oxygen supplementation keeping saturation over 88%. No wheeze on examination so will avoid systemic steroids for now. History of diastolic heart failure: Euvoluemic now. d/c fluids. Hold off on diuresis. Hypertension: No medication at home dose earlier than Lopressor 12.5 twice daily. Blood pressure better today. We will continue other home medications like BuSpar, Cymbalta, oral iron, gabapentin. Patient is DNR/DNI as per her daughter and her old records. Cardiac diet. Lovenox for DVT prophylaxis. Attestations Medical Necessity Statement*: Needs continued hospitalisation for HCAP Time Spent in Patient Care: 16 - 35 minutes Coding Level of Care Code Acute Senior Database Programmer for [employer] Diagnoses Acute and chronic respiratory failure with hypoxia J96.21 HCAP (healthcare-associated pneumonia) J18.9 COPD (chronic obstructive pulmonary disease) J44.9 Diastolic heart failure I50.30 HTN (hypertension) I10
[2019-10-28] MEDS: atorvastatin 40 mg Tablet 20 MG PO (22:43)
[2019-10-28] MEDS: LORazepam 0.5 mg Tablet 0.25 MG PO (23:19)
[2019-10-29] VITALS (14 sets, daily range): BP systolic 154–182; BP diastolic 68–80; PULSE 64–89; RESP 18–24; TEMP 36.3–37.2; O2SAT 93–97; BMI 28.8
[2019-10-29] MEDS: ipratropium-albuterol 3 mL Neb INHALATION ×4 (02:56→20:59)
[2019-10-29] MEDS: morphine 4 mg/mL SDV 1 mL 1 MG IVP ×3 (03:49→18:54)
[2019-10-29] MEDS: vancomycin 1,000 MG in sodium chloride 0.9% 250 ML 250 MG IV (03:50)
[2019-10-29] MEDS: piperacillin-tazobactam 3.375 GM in sodium chloride 0.9% (plus) 50 ML IV ×3 (03:50→19:31)
[2019-10-29] MEDS: budesonide 0.5 mg/2 mL Neb INHALATION (08:00)
[2019-10-29] MEDS: ferrous sulfate EC 325 mg Tablet PO ×2 (09:04→17:51)
[2019-10-29] MEDS: gabapentin 300 mg Capsule PO ×3 (09:04→21:10)
[2019-10-29] MEDS: duloxetine 60 mg Capsule PO (09:04)
[2019-10-29] MEDS: fluticasone nasal spray 16gm Btl 2 SPRAY INTRANASAL ×2 (09:05→17:51)
[2019-10-29] MEDS: metoprolol tartrate 25 mg Tablet 12.5 MG PO ×2 (09:05→17:50)
[2019-10-29] MEDS: LORazepam 0.5 mg Tablet 0.25 MG PO ×2 (09:11→19:30)
[2019-10-29] MEDS: famotidine 20 mg/2 mL INJ IVP ×2 (09:12→21:10)
[2019-10-29] MEDS: enoxaparin 40 mg/0.4 mL Syringe SUBCUT (17:51)
--- NOTE | 2019-10-29 18:04 | PM.PN ---
Subjective Subjective: Interval history: NO acute events. Has intermittent bouts of cough but overall improved. Saturating 94% on 3 L nasal cannula. No acute overnight events. Medications: Reviewed: Yes Vitals/I&O/Wt Last Vital Signs Temp 97.7 F 10/29/19 14:59 Pulse 76 10/29/19 14:59 Resp 20 H 10/29/19 14:59 BP 157/71 10/29/19 14:59 Pulse Ox 94 10/29/19 14:59 10/29/19 10/29/19 10/29/19 06:59 14:59 22:59 Intake Total 350 / 1300 650 / 650 Output Total 375 / 375 Balance 350 / 1150 275 / 275 Weight last 48 hrs Weight 69.144 kg Weight 69.144 kg Physical Exam Narrative: EXAM NARRATIVE: GEN: Awake, alert and oriented, no acute distress CVS: S1S2 N RS: CTA B/L except crackles over RUL Abd: Soft, nt/nd , bs+ SIGNS SALES REPRESENTATIVE: no focal neuro deficits Data Micro: Micro: Microbiology 10/28/19 12:55 MRSA Culture - Fin al Nose 10/28/19 11:10 Gram Stain - Final Sputum - Expector ated Sputum Sputum Culture - P reliminary 10/27/19 12:13 Blood Culture - Pr eliminary Blood NEGATIVE TO ERIBERTO E 10/27/19 12:10 Blood Culture - Pr eliminary Blood NEGATIVE TO ERIBERTO E A&P Assessment and plan (1) Acute and chronic respiratory failure with hypoxia: Status: Acute Code(s): J96.21 - Acute and chronic respiratory failure with hypoxia (2) HCAP (healthcare-associated pneumonia): Status: Acute Code(s): J18.9 - Pneumonia, unspecified organism (3) COPD (chronic obstructive pulmonary disease): Status: Acute Code(s): J44.9 - Chronic obstructive pulmonary disease, unspecified (4) Diastolic heart failure: Status: Acute Code(s): I50.30 - Unspecified diastolic (congestive) heart failure (5) HTN (hypertension): Status: Acute Code(s): I10 - Essential (primary) hypertension Additional A&P Information Acute hypoxic respiratory failure most likely due to HCAP contributing to COPD exacerbation: Symptomatically improving. Though CT has been read as negative for pneumonia but it is possible patient has fine developing infiltrates in the right middle and lower zone and patient is hypoxic, white count elevated, low-grade fever. Lactate normal. Procal, flu swab negative. MRSA negative. Will discontinue vancomycin And follow Sejal Raza's [id number], budesonide twice daily with albuterol as needed. Oxygen supplementation keeping saturation over 88%. No wheeze on examination so will avoid systemic steroids for now. History of diastolic heart failure. Resume home dose of Lasix Hypertension: No medication at home dose earlier than Lopressor 12.5 twice daily. Blood pressure better today. We will continue other home medications like BuSpar, Cymbalta, oral iron, gabapentin. Patient is DNR/DNI as per her daughter and her old records. Cardiac diet. Lovenox for DVT prophylaxis. Attestations Medical Necessity Statement*: Patient improving after treatment for H CAP and COPD exacerbation. To be discharged tomorrow. Coding Level of Care Code Acute Technology Consultant for [employer] Diagnoses Acute and chronic respiratory failure with hypoxia J96.21 HCAP (healthcare-associated pneumonia) J18.9 COPD (chronic obstructive pulmonary disease) J44.9 Diastolic heart failure I50.30 HTN (hypertension) I10
[2019-10-29] MEDS: atorvastatin 40 mg Tablet 20 MG PO (21:10)
[2019-10-30] VITALS (10 sets, daily range): BP systolic 160–187; BP diastolic 68–89; PULSE 70–93; RESP 18–22; TEMP 36.3–37.1; O2SAT 91–96
[2019-10-30] MEDS: morphine 4 mg/mL SDV 1 mL 1 MG IVP (00:08)
[2019-10-30] MEDS: ipratropium-albuterol 3 mL Neb INHALATION ×2 (02:09→08:13)
[2019-10-30] MEDS: piperacillin-tazobactam 3.375 GM in sodium chloride 0.9% (plus) 50 ML IV (04:55)
[2019-10-30 06:42] LABS: Basophils # 0.1 10^3/uL (0.0-0.1); Basophils % 0.6 %; Eosinophils # 0.3 10^3/uL (0.0-0.8); Eosinophils % 2.1 %; Hematocrit 36.5 % (37.0-47.0); Hemoglobin 11.6 g/dL (11.5-15.3); Lymphocytes # 2.6 10^3/uL (0.8-4.8); Lymphocytes % 19.7 %; Mean Corpuscular HGB Conc 31.8 g/dL (30.0-36.0); Mean Corpuscular Hemoglobin 28.9 pg (28.0-34.0); Monocytes # 1.1 10^3/uL (0.2-0.9); Monocytes % 8.2 %; Neutrophils % 67.9 %; Nucleated Red Blood Cells % 0 %; Platelet Count 332 10^3/cmm (130-400); Red Blood Count 4.01 10^6/uL (4.1-5.3); Red Cell Distribution Width 13.4 % (12.1-15.1); White Blood Count 13.2 10^3/uL (4.0-10.0)
[2019-10-30 06:51] LABS: Alanine Aminotransferase 13 U/L (0-33); Albumin Level 3.3 g/dL (3.5-5.2); Alkaline Phosphatase 72 IU/L (35-105); Anion Gap 14.2 (5-19); Aspartate Amino Transferase 19 U/L (0-32); Blood Urea Nitrogen 7 mg/dL (8-23); Calcium 9.3 mg/Dl (8.8-10.2); Carbon Dioxide 27 mmol/L (22-29); Chloride 103 mmol/L (98-107); Globulin 3.3 g/dL (1.3-4.6); Glucose 125 mg/dL (74-106); Potassium 3.2 mmol/L (3.5-5.1); Sodium 141 mmol/L (136-145); Total Bilirubin 0.2 mg/dL (0.15-1.2); Total Protein 6.6 g/dL (6.6-8.7)
[2019-10-30] MEDS: budesonide 0.5 mg/2 mL Neb INHALATION (08:13)
--- NOTE | 2019-10-30 08:38 | PM.DCS ---
Discharge Providers Date of Admission: 10/27/19 14:55 Date of Discharge: 10/30/19 Attending Provider at Admission: John Wilks MD Attending Provider at Discharge: Antonella Pryor MD Primary Care Provider: Walter Sarmiento MD Diagnoses at Discharge Discharge Diagnosis (1) Acute and chronic respiratory failure with hypoxia: Status: Acute (2) HCAP (healthcare-associated pneumonia): Status: Acute (3) COPD (chronic obstructive pulmonary disease): Status: Acute (4) Diastolic heart failure: Status: Acute (5) HTN (hypertension): Status: Acute Reason for Visit Reason for Visit: Reason For Visit: HCAP Hospital Course Discharge Summary: Rimma Nino is a 78 year old female with past medical history of COPD, emphysema on 2 to 3 L of nasal cannula oxygen supplementation, diastolic heart failure, sclerosed aortic valve, hypertension, 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 coli and Enterobacter VRE presents from prison complaining of cough with expectoration getting worse for last 1 week acutely worse for last 2 days. Patient states sputum production is more than scanty. She always has some sputum production but has increased recently. CT chest was performed and notable for possibly developing fine infiltrates over the right middle and lower zone. Given patient's hypoxia, leukocytosis and low-grade fever was decided to treat the patient for pneumonia. She received Zosyn between October 27 to October 30. Vancomycin was also given initially and then stopped once MRSA PCR from the nares returned negative. She received DuoNeb's and budesonide O2 supplementation to keep O2 sat over 88%. Systemic steroids were not given as overall impression was more consistent with pneumonia rather than a COPD exacerbation. Patient white count has trended down from 25-13 at the time of discharge. She is afebrile. States that her breathing is back at baseline. She is being [facility] back [facility] in a stable condition. Physical Exam Narrative: EXAM NARRATIVE: GEN: Awake, alert and oriented, no acute distress CVS: S1S2 N RS: Clear to auscultation bilaterally. Abd: Soft, nt/nd , bs+ WAY INSPECTOR: no focal neuro deficits Discharge Data Data Completed and Pending: Completed Studies During Hospitalization Category Date Time Status CT chest w con* [id number] Urgent Cat Scan 10/27/19 13:35 Completed XR chest 1V tuan ble [id number] Stat Exams 10/27/19 11:56 Completed Pending at discharge Category Date Time Status Blood Culture Sta t Lab 10/27/19 12:13 Results Sputum Culture an d Gram Stain Stat Lab 10/28/19 11:10 Results Labs from last 24 hours 10/30/19 10/30/19 06:05 06:05 WBC 13.2 H RBC 4.01 L Hgb 11.6 Hct 36.5 L MCV 91.0 MCH 28.9 MCHC 31.8 RDW 13.4 Plt Count 332 MPV 8.0 Neut % (Auto) 67.9 Lymph % (Auto) 19.7 [place] % (Auto) 8.2 Eos % (Auto) 2.1 Baso % (Auto) 0.6 Neut # (Auto) 9.0 H Lymph # (Auto) 2.6 [place] # (Auto) 1.1 H Eos # (Auto) 0.3 Baso # (Auto) 0.1 Nucleated RBC % (a uto) 0 Nucleated RBCs # 0.0 Sodium 141 Potassium 3.2 L Chloride 103 Carbon Dioxide 27 Anion Gap 14.2 BUN 7 L Creatinine 1.0 H Glucose 125 H Calcium 9.3 Total Bilirubin 0.2 AST 19 ALT 13 Alkaline Phosphata se 72 Total Protein 6.6 Albumin 3.3 L Globulin 3.3 Vitals: Last Vital Signs Temp 98.2 F 10/30/19 08:00 Pulse 93 10/30/19 08:23 Resp 22 H 10/30/19 08:23 BP 164/89 10/30/19 08:00 Pulse Ox 93 10/30/19 08:23 Discharge Plan Discharge Patient Disposition: Xfer [facility] Condition: Stable Prescriptions: New levofloxacin [Levaquin] 750 mg tablet 750 mg PO DAILY 1 Days RF: 0 Continued Advair Diskus 250-50 mcg/dose Blister With Device 1 inh INHALATION BID RF: 0 acetaminophen 325 mg Tablet 650 mg PO Q4H PRN (Reason: Pain) RF: 0 tizanidine 2 mg Tablet 2 mg PO DAILY PRN (Reason: Spasms) RF: 0 albuterol sulfate 2.5 mg /3 mL (0.083 %) Solution For Nebulization 2.5 mg INHALATION QID PRN (Reason: Shortness Of Breath) RF: 0 Miralax 17 gram Powder In Packet 17 g PO DAILY RF: 0 cetirizine 10 mg Tablet 10 mg PO DAILY RF: 0 Senna-S 8.6-50 mg Tablet 1 tab PO BID PRN (Reason: Constipation) RF: 0 potassium chloride 10 mEq Tablet Extended Release 10 meq PO DAILY RF: 0 lorazepam 0.5 mg Tablet 0.25 mg PO BID PRN (Reason: Anxiety) RF: 0 Milk of Magnesia 400 mg/5 mL Suspension 30 ml PO DAILY PRN (Reason: Constipation) RF: 0 simvastatin 20 mg Tablet 20 mg PO BEDTIME RF: 0 buspirone 30 mg Tablet 30 mg PO BID RF: 0 ferrous sulfate 325 mg (65 mg iron) Tablet 325 mg PO BID RF: 0 Zantac 150 mg Tablet 150 mg PO DAILY RF: 0 Enema 19-7 gram/118 mL Enema 118 ml [place] DAILY PRN (Reason: Constipation) RF: 0 pramipexole 0.125 mg Tablet 0.125 mg PO BID RF: 0 gabapentin 300 mg Capsule 300 mg PO TID RF: 0 morphine 15 mg Tablet Extended Release 15 mg PO BID RF: 0 Lasix 20 mg Tablet 20 mg PO DAILY PRN (Reason: Edema) RF: 0 hydroxychloroquine 200 mg Tablet 200 mg PO BID RF: 0 Flonase Allergy Relief 50 mcg/actuation [place],Suspension 2 spray INTRANASAL BID RF: 0 metoprolol tartrate 25 mg Tablet 12.5 mg PO BID RF: 0 Macrobid 100 mg Capsule 100 mg PO BID RF: 0 Cymbalta 60 mg Capsule,Delayed Release(Dr/Ec) 60 mg PO DAILY RF: 0 Incruse Ellipta 62.5 mcg/actuation Blister With Device 1 inh INHALATION DAILY RF: 0 Discontinued acetaminophen 325 mg Tablet 650 mg PO BID RF: 0 tizanidine 2 mg Tablet 2 mg PO BID RF: 0 Lasix 20 mg Tablet See Rx Instructions .ROUTE .COMPLEX RF: 0 Discharge Orders: Discharge Order (Routine); Ordered 10/30/19 Ordered By: Antonella Pryor Referrals: Walter Sarmiento MD [Primary Care Provider] - Discharge Diet: Usual diet Discharge Activity: Resume usual activity Discharge Attestations Time Spent in Discharge Care*: greater than 30 min Quality Metrics Clinical Quality Measures During this hospital stay, did patient experience: None Coding Level of Care Code Acute Reimbursement Analyst for [facility] Fwd Diagnoses Acute and chronic respiratory failure with hypoxia J96.21 HCAP (healthcare-associated pneumonia) J18.9 COPD (chronic obstructive pulmonary disease) J44.9 Diastolic heart failure I50.30 HTN (hypertension) I10
[2019-10-30] MEDS: fluticasone nasal spray 16gm Btl 2 SPRAY INTRANASAL (09:12)
[2019-10-30] MEDS: famotidine 20 mg/2 mL INJ IVP (09:12)
[2019-10-30] MEDS: ferrous sulfate EC 325 mg Tablet PO (09:13)
[2019-10-30] MEDS: LORazepam 0.5 mg Tablet 0.25 MG PO (09:13)
[2019-10-30] MEDS: gabapentin 300 mg Capsule PO ×2 (09:13→14:10)
[2019-10-30] MEDS: metoprolol tartrate 25 mg Tablet 12.5 MG PO (09:13)
[2019-10-30] MEDS: FUROsemide 20 mg Tablet PO (09:13)
[2019-10-30] MEDS: duloxetine 60 mg Capsule PO (09:13)
--- NOTE | 2019-10-30 09:49 | PC.NURSE ---
Report called to [facility]. Report given to Rissa You LPN. Last BM reported this am. No skin issues noted. Rissa denies questions or concerns at this time.
== END 2019-10-30 14:29 | disposition home or self-care (01) | DRG 193 ==
LOC: ER 15:00 → MEDSURG 15:12
PROVIDERS: Admitting Provider Student in an Organized Health Care Education/Training Program; Emergency Provider Family Medicine; Family Provider Family Medicine; PCP Family Medicine; Visit Provider Student in an Organized Health Care Education/Training Program
DX: J18.9 Pneumonia, unspecified organism (principal); J96.21 Acute and chronic respiratory failure with hypoxia; I50.31 Acute diastolic (congestive) heart failure; J98.11 Atelectasis; Z66 Do not resuscitate; J43.9 Emphysema, unspecified; I11.0 Hypertensive heart disease with heart failure; K21.9 Gastro-esophageal reflux disease without esophagitis; M81.0 Age-related osteoporosis without current pathological fracture; I25.10 Atherosclerotic heart disease of native coronary artery without angina pectoris; E86.0 Dehydration; Z87.891 Personal history of nicotine dependence
CPT/HCPCS: 12345; 36415; 71045; 71260; 80048; 80053; 80202; 81003; 83540; 83550; 83605; 83690; 83880; 84145; 84484; 85025; 85378; 87040; 87070; 87205; 87641; 87804; 93005; 94640; 96372; 96375; 99283; J1650; J2270; J2543; J3370; J3490; J7050; J7626; Q9967

== ENCOUNTER 2019-11-04 08:30 | Outpatient (RCR) | payer MEDICARE, OTHER, MEDICAID, SELFPAY ==
[2019-11-04 09:13] LABS: Basophils # 0.1 10^3/uL (0.0-0.1); Basophils % 0.7 %; Eosinophils # 0.3 10^3/uL (0.0-0.8); Eosinophils % 2.6 %; Hematocrit 38.8 % (37.0-47.0); Hemoglobin 12.3 g/dL (11.5-15.3); Lymphocytes # 2.5 10^3/uL (0.8-4.8); Lymphocytes % 24.6 %; Mean Corpuscular HGB Conc 31.7 g/dL (30.0-36.0); Mean Corpuscular Hemoglobin 29.9 pg (28.0-34.0); Mean Corpuscular Volume 94.2 fL (81-99); Mean Platelet Volume 8.5 fL (7.4-10.4); Monocytes % 10.1 %; Neutrophils # 6.3 10^3/uL (1.8-7.7); Neutrophils % 61.2 %; Nucleated Red Blood Cells % 0 %; Platelet Count 405 10^3/cmm (130-400); Red Blood Count 4.12 10^6/uL (4.1-5.3); Red Cell Distribution Width 13.9 % (12.1-15.1); White Blood Count 10.3 10^3/uL (4.0-10.0)
[2019-11-04 10:15] LABS: Alanine Aminotransferase 10 U/L (0-33); Albumin Level 3.3 g/dL (3.5-5.2); Alkaline Phosphatase 56 IU/L (35-105); Anion Gap 14.8 (5-19); Aspartate Amino Transferase 18 U/L (0-32); Blood Urea Nitrogen 16 mg/dL (8-23); Calcium 9.9 mg/Dl (8.8-10.2); Carbon Dioxide 30 mmol/L (22-29); Chloride 98 mmol/L (98-107); Globulin 3.2 g/dL (1.3-4.6); Glucose 94 mg/dL (74-106); Magnesium 2.3 mg/dL (1.7-2.3); Potassium 4.8 mmol/L (3.5-5.1); Sodium 138 mmol/L (136-145); Total Bilirubin 0.2 mg/dL (0.15-1.2); Total Protein 6.5 g/dL (6.6-8.7)
== END 2019-11-15 23:59 | disposition home or self-care (01) ==
LOC: LAB 08:30
PROVIDERS: Family Provider Family Medicine; PCP Family Medicine; Visit Provider Family Medicine
DX: J18.9 Pneumonia, unspecified organism (principal); J96.21 Acute and chronic respiratory failure with hypoxia; D64.9 Anemia, unspecified
CPT/HCPCS: 80053; 83735; 85025

== ENCOUNTER → 2019-11-13 13:25 | Outpatient (BNVA) | payer OTHER, MEDICARE, MEDICAID, SELFPAY | PROVIDERS: Family Provider Family Medicine; PCP Family Medicine; Visit Provider Urology | DX: N39.0 Urinary tract infection, site not specified (principal); N39.46 Mixed incontinence | CPT/HCPCS: 81001 ==

== ENCOUNTER 2019-11-27 13:38 | Outpatient (CLI) | payer MEDICARE, OTHER, MEDICAID, SELFPAY ==
[2019-11-27 13:10] VITALS: BP 150/76; PULSE 76; RESP 16; TEMP 37
[2019-11-27] MEDS: denosumab 60 mg SDV SUBCUT (13:55)
[2019-11-27 14:00] VITALS: BP 146/67; PULSE 72; RESP 16; TEMP 36.7
== END 2019-11-27 13:39 | disposition home or self-care (01) ==
LOC: RHEOACUTE 13:38
PROVIDERS: Family Provider Family Medicine; PCP Family Medicine; Visit Provider Internal Medicine Rheumatology
DX: M15.9 Polyosteoarthritis, unspecified (principal); M81.0 Age-related osteoporosis without current pathological fracture; E61.1 Iron deficiency; M79.7 Fibromyalgia; E55.9 Vitamin D deficiency, unspecified; I10 Essential (primary) hypertension; Z87.891 Personal history of nicotine dependence; Z79.891 Long term (current) use of opiate analgesic
CPT/HCPCS: 96372; 99214; J0897

== ENCOUNTER → 2020-02-19 13:21 | Outpatient (BNVA) | payer MEDICARE, MEDICAID, SELFPAY | PROVIDERS: Family Provider Family Medicine; PCP Family Medicine; Visit Provider Urology | DX: N39.0 Urinary tract infection, site not specified (principal); N32.81 Overactive bladder | CPT/HCPCS: 81001 ==

== ENCOUNTER → 2020-05-06 09:31 | Outpatient (BNVA) | payer MEDICARE, OTHER, MEDICAID, SELFPAY | PROVIDERS: Family Provider Family Medicine; PCP Family Medicine; Visit Provider Internal Medicine | DX: M81.0 Age-related osteoporosis without current pathological fracture (principal); M15.9 Polyosteoarthritis, unspecified; Z79.899 Other long term (current) drug therapy | CPT/HCPCS: 36415; 80053; 82306; 85025; 99213 ==

== ENCOUNTER → 2020-05-26 13:43 | Outpatient (BNVA) | payer MEDICARE, MEDICAID, SELFPAY | PROVIDERS: Family Provider Family Medicine; PCP Family Medicine; Visit Provider Nurse Practitioner Family | DX: N32.81 Overactive bladder (principal); N39.46 Mixed incontinence; N39.0 Urinary tract infection, site not specified | CPT/HCPCS: 81001 ==

== ENCOUNTER → 2020-09-16 14:14 | Outpatient (BNVA) | payer MEDICARE, MEDICAID, SELFPAY | PROVIDERS: Family Provider Family Medicine; PCP Family Medicine; Visit Provider Nurse Practitioner Family | DX: N32.81 Overactive bladder (principal); N39.0 Urinary tract infection, site not specified | CPT/HCPCS: 81003; 87077; 87086; 87184 ==